=== PATIENT | female | born 1960 | race Caucasian/White ===

== ENCOUNTER 2020-05-15 17:30 | Inpatient (IN) | payer BC ==
[~2020-05-15] VITALS: Ht 167.6 cm; Wt 100.0 kg
--- NOTE | 2020-05-15 17:30 | NUR ---
PT TO ROOM VIA EMS STRETCHER FOR BEDSIDE TRIAGE
[2020-05-15 18:09] LABS: URINE BILIRUBIN - DIPSTICK SMALL (NEGATIVE); URINE BLOOD DIPSTICK LARGE (NEGATIVE); URINE COLOR YELLOW; URINE GLUCOSE - DIPSTICK NEGATIVE (NEGATIVE); URINE KETONE TRACE mg/dL (NEGATIVE); URINE LEUK ESTERASE MODERATE (NEGATIVE); URINE NITRITE - DIPSTICK NEGATIVE (Negative); URINE PH 7.5 (4.5-8.0); URINE PROTEIN - DIPSTICK >=300 mg/dL (NEG-TRACE); URINE SPECIFIC GRAVITY 1.025; URINE UROBILINOGEN - DIPSTICK 0.2 E.U./dL (0.2)
[2020-05-15 18:10] LABS: URINE AMORPH SEDIMENT MANY hpf (NONE-FEW); URINE BACTERIA MODERATE hpf; URINE SQUAMOUS EPITHELIAL CELL FEW EPI/hpf (0-FEW); URINE WBC TNTC WBC/hpf (0-5)
[2020-05-15 18:26] LABS: ALBUMIN 1.8 g/dL (3.2-5.0); ALKALINE PHOSPHATASE 218 u/l (38-126); BUN 69 mg/dL (7-17); BUN/CREATININE RATIO 36 (12-20 (CALC)); CARBON DIOXIDE 12 mmol/l (22-30); CHLORIDE 114 mmol/l (95-108); CREATININE 1.9 mg/dL (0.5-1.0); GFR 27 ML/MIN (>=60 (CALC)); GFR FOR AFR.AMER. 33 ML/MIN (>=60 (CALC)); SGOT/AST 37 u/l (14-36); SODIUM 138 mmol/l (137-146); TOTAL PROTEIN 5.2 g/dL (6.3-8.2)
[2020-05-15 18:28] LABS: ACT PARTIAL THROMBO TIME 36.5 SECONDS (20.0-32.5); INTERNATIONAL NORMALIZED RATIO 1.9 RATIO (0.7-1.3); PROTHROMBIN TIME 18.1 SECONDS (9.0-12.5)
[2020-05-15 18:30] LABS: ANION GAP 17 (6-22 (CALC)); IMMATURE GRANULOCYTES 0.9 % (0.0-5.0); MEAN CELL VOLUME 59.4 fL CALC (80.0-100.0); MEAN CORPUSCULAR HGB 15.9 pG CALC (26.0-32.0); MEAN CORPUSCULAR HGB CONC 26.7 g/dL CAL (32.0-36.0); NEUT# 12.74 thou/uL (2.00-7.15); POTASSIUM 5.2 mmol/l (3.5-5.1); RED BLOOD COUNT 2.71 mill/uL (4.20-5.60); RED CELL DISTRI WIDTH 24.2 % (11.5-15.5)
[2020-05-15 18:34] LABS: HEMATOCRIT 16.1 % (37.0-47.0); HEMOGLOBIN 4.3 g/dl (12.0-16.0)
--- NOTE | 2020-05-15 19:00 | NUR ---
PT RETURNED FROM CT VIA STRETCHER WITH NOE YOUSIF. PT IS UNRESPONSIVE. RESPONDS TO PAINFUL STIMULI. NO VERBAL RESPONSE. ANTIBIOTICS AND FLUIDS INFUSING. 2800 CC OF NS HAS NOW INFUSED. (1000CC BY EMS/1800 BY US) CM SR-ST. BP LOW....LEVOPHED BEING PREPARED.
--- NOTE | 2020-05-15 19:05 | NUR ---
DR SOLARES AND Renato SOLO, RN TO BEDSIDE TO DISCUSS CODE ISSUES WITH S.O. WHO IS APPRAENTLY HER PROXY. SON IS ALSO ON THE PHONE. PT MADE A DNR. WILL CONTINUE WITH MEDICATIONS/BLOOD/COMFORT MEASURES.
[2020-05-15 20:00] VITALS: BP 97/47
[2020-05-15 20:24] VITALS: BP 101/50
[2020-05-15 21:20] VITALS: BP 105/51
--- NOTE | 2020-05-15 21:30 | NUR ---
JEANNIE REESE NOTIFIED OF INCREASED LACTIC/BS 58 -D10 GIVEN/1 UNIT OF BLOOD GIVEN FOR HGB OF 4.3
[2020-05-15] MEDS ORDERED: BUMETANIDE1 MG PO (21:52)
[2020-05-15] MEDS ORDERED: SPIRONOLACTONE25 MG PO (21:53)
[2020-05-15] MEDS ORDERED: ACTIGALL300 MG PO (21:53)
[2020-05-15] MEDS ORDERED: GENERLAC10 GM/15 M PO (21:54)
[2020-05-15 22:13] VITALS: BP 99/50
[2020-05-15 22:42] VITALS: BP 92/46
--- NOTE | 2020-05-15 22:48 | NUR ---
2ND UNIT OF BLOOD INFUSING. BP IN 90'S. LEVOPHED INCREASED.
[2020-05-16] VITALS (46 sets, daily range): BP systolic 76–127; BP diastolic 36–60
--- NOTE | 2020-05-16 01:30 | NUR ---
PT RESTING. VS HOLDING. 2ND UNIT OF BLOOD COMPLETED.
[2020-05-16 02:23] LABS: MEAN CORPUSCULAR HGB 18.5 pG CALC (26.0-32.0); MEAN CORPUSCULAR HGB CONC 28.8 g/dL CAL (32.0-36.0); RED BLOOD COUNT 3.72 mill/uL (4.20-5.60); RED CELL DISTRI WIDTH 28.9 % (11.5-15.5)
[2020-05-16 02:26] LABS: HEMOGLOBIN 6.9 g/dl (12.0-16.0); MEAN CELL VOLUME 64.5 fL CALC (80.0-100.0)
--- NOTE | 2020-05-16 03:30 | NUR ---
PT TRANSFERRED TO HOSPITAL BED. LEAKING FOUL, THICK LINDSEY PURULENT DRAINAGE FROM MERY AREA. AREAS OF ESCORIATION AND SMALL ULCERATIONS TO ANTERIOR PUBIC AREA AND SACRAL AREA. QUIROZ CHANGED TO ONE WITH A METER FOR CLOSER MONITORING. AND TO MAKE SURE LIQUID IS NOT DRAINING FROM AROUND THE CATH. PT CLEANSED. WARM BLANKETS APPLIED. CONTINUES TO ONLY RESPOND TO PAINFUL STIMULI. NO VERBALIZATION/NO EYE CONTACT.
--- NOTE | 2020-05-16 06:15 | NUR ---
PT HOLDING STEADY. PT CHANGED FOR PURULENT DRAINAGE FROM MERY AREA....SATURATED ATTENDS. CLEANSED AND POSITIONED. S.O. AT BEDSIDE. MORNING LABS DRAWN BY PHLEB
[2020-05-16 06:36] LABS: HEMATOCRIT 24.7 % (37.0-47.0); IMMATURE GRANULOCYTES 1.3 % (0.0-5.0); MEAN CELL VOLUME 65.3 fL CALC (80.0-100.0); MEAN CORPUSCULAR HGB 18.3 pG CALC (26.0-32.0); MEAN CORPUSCULAR HGB CONC 27.9 g/dL CAL (32.0-36.0); NEUT# 17.85 thou/uL (2.00-7.15); RED BLOOD COUNT 3.78 mill/uL (4.20-5.60); RED CELL DISTRI WIDTH 28.5 % (11.5-15.5)
[2020-05-16 06:50] LABS: ALBUMIN 1.9 g/dL (3.2-5.0); TOTAL PROTEIN 5.7 g/dL (6.3-8.2)
[2020-05-16 06:52] LABS: HEMOGLOBIN 6.9 g/dl (12.0-16.0)
--- NOTE | 2020-05-16 07:00 | NUR ---
PT RESTING IN BED WITH EYES OPEN. PT IS UNRESPONSIVE AT THIS STIMULI AT THIS TIME. S/O AT BEDSIDE. ADMISSION ASSESSMENT COMPLETED AT THIS TIME. IV PATENT X3. TITRATIONS FOR LEVOPHED PER AUG.
--- NOTE | 2020-05-16 07:05 | NUR ---
REPORT TO PERLA
[2020-05-16 07:16] LABS: BILIRUBIN, TOTAL 4.9 mg/dL (0.0-1.4); POTASSIUM 5.6 mmol/l (3.5-5.1)
--- NOTE | 2020-05-16 07:30 | NUR ---
INCREASED O2 TO 4L NC AT THIS TIME FOR DECREAsed o2 sats
--- NOTE | 2020-05-16 08:00 | NUR ---
DR BARRIOS NOTIFIED OF CONSULT AT THIS TIME
--- NOTE | 2020-05-16 08:00 | NUR ---
DR LOPEZ AND JEANNIE AT BEDSIDE FOR EVAL AND TO DISCUSS PLAN OF CARE. NEW ORDERS RECEIVED
--- NOTE | 2020-05-16 08:25 | NUR ---
1 UNIT OF PRBCS INFUSING AT THIS TIME. DISCUSSED NEED FOR CENTRAL LINE WITH S/O AND GIVES CONSENT. WILL OBTAIN CONSENT. CALL LIGHT IN REACH. WILL CONTIUNUE TO MONITOR.
--- NOTE | 2020-05-16 08:50 | NUR ---
S/O CALLED THIS NURSE INTO ROOM. PT HAD BROWNISH TINGED FOAM COMING OUT OF NOSE. PT FACE CLEANSED. ELVEATED HOB. DR LOPEZ NOTIFIED. WILL CONTINUE TO MONITOR.
--- NOTE | 2020-05-16 09:14 | NUR ---
PT'S CHART REVIEWED AND SCREENED FOR PT SERVICES. DUE TO PT'S CONDITION PT IS NOT APPROPRIATE FOR SKILLED PT AT THIS TIME. IF CLINICAL STATUS IMPROVES PHYSICAL MEDICINE WILL REASSESS.
--- NOTE | 2020-05-16 09:30 | NUR ---
DR LOPEZ NOTIFIED OF DECLINE IN PT CONDITION.
--- NOTE | 2020-05-16 09:40 | NUR ---
Rancho BRIDGES APRN AT BEDSIDE TO DISUCSS PLAN OF CARE AND DECLINE WITH PT AND S/O.
--- NOTE | 2020-05-16 09:45 | NUR ---
PT PLACE A NRB AT 15L FOR DECREASED O2 SATS.
--- NOTE | 2020-05-16 10:45 | NUR ---
1 UNIT OF PRBC COMPLETED AT THIS TIME. LACTULOSE 30GM GIVEN RECTALLY PER MD ORDERS BY Fabio ROMERO RN. NO URINE OUTOUT THIS FAR ON OUR SHIFT.
--- NOTE | 2020-05-16 11:01 | NUR ---
REPORT CALLED TO DARREN LIU IN ICU
--- NOTE | 2020-05-16 11:11 | NUR ---
CONSENT FOR CENTRAL LINE PLACEMENT OBTAINED AT THIS TIME FROM S/O
--- NOTE | 2020-05-16 11:26 | NUR ---
S/O LEFT BEDSIDE AT THIS TIME. CODE PROVIDED SO HE CAN CALL FOR UPDATES ON PATIENT. S/O THANKFUL FOR CARE RECEIVED.
--- NOTE | 2020-05-16 11:35 | NUR ---
PT TRANSPORTED TO ICU VIA BED ON MONITOR. UPDATE PROVIDED TO DARREN LIU.
--- NOTE | 2020-05-16 11:38 | NUR ---
female pt received to ICU bed 2 via bed accompanied by Eboni Reed RN and Stone Rojas LPN; assessment completed at this time; pt unresponsive to verbal and painful stimuli; pupils reactive; no facial grimaces of pain noted; no n/v noted; resp unlabored; lungs coarse throughout/ more diminished to right carrera; skin color pale; NRB intact at 15L; no cough noted; hr reg; weak pulses; 4+ generalized edema noted; sr/st on monitor; abd soft/ distended with bs hypoactive; large hernia noted to lower abd with redness and ashened appearance; no stool noted per advertising copy writer; ma to gravity draining cloudy bloody urine/ clots noted; #18 to rac patent with levophed gtt at 32 mcg/min; #20 rfa/ ems site flushed and patent; #20 to lh flushed and patent; bruising noted to left lat torse and left upper inner thigh; skin abrasions noted to left lat ankle/foot; perineum extremly red with small open areas; coccyx/ buttocks red with small open areas; unable to measure/see photo on chart; thin creamy/ bloody/ purulent copious discharge appears to be excreted from vaginal area; purulent brownish discharge from rectal area; discharge noted with VERY FOUL ODOR; pt appears unkempt; repositioned; will continue to monitor closely
--- NOTE | 2020-05-16 12:11 | NUR ---
D Kayla LOVE called in regards to pt status; informed sbp 90s on 32 mcg/min levophed; unresponsive; will continue to monitor
--- NOTE | 2020-05-16 12:14 | NUR ---
PT ON NRB WITH SPO2 IN MID 80'S.
--- NOTE | 2020-05-16 12:31 | NUR ---
admin has approved visitation
--- NOTE | 2020-05-16 12:34 | NUR ---
call placed to Bill s/o; no answer; message left to return call
--- NOTE | 2020-05-16 12:44 | NUR ---
received call from Holaira s/o; updated provided; spouse wishes to hold off on morphine for discomfort; informed of visitation approval; will continue to monitor
--- NOTE | 2020-05-16 13:06 | NUR ---
central line placement canceled per Dr Alex; Dr Dotson notified per Fabio Dietrich APRN
--- NOTE | 2020-05-16 13:15 | NUR ---
call placed to Bill sign other at this time; called twice; no answer; message left to return call
--- NOTE | 2020-05-16 13:21 | NUR ---
received call from Roberto mendoza other; senior mortgage underwriter request for s/o to come to hospital explained declined in resp rate and hr dropping to 40-50s; s/o in [place] and will be here in 20 min; s/o made aware pt will more than likely have passed before his arrival; Roberto appreciative of care and states "I knew this would happen";
--- NOTE | 2020-05-16 13:30 | NUR ---
cardiopulmonary arrest; apical pulses absent verified as per protocol; time of [id number]
--- NOTE | 2020-05-16 13:42 | NUR ---
1342 received called from [employer] in regards to pt picker feeder 1343; Nadine Renee [facility] called per clinical writer to cancel picker feeder
--- NOTE | 2020-05-16 13:50 | NUR ---
sign other Adan Contreras present in waiting room; pt has been cleaned up; s/o declined to enter patiet room; Adan admits to having pt belongings already; Adan has notified son Mike; crematory pre-arrangements has been made; s/o and son unsure of company name; son Mike will try and obtain information later tonight per Adan; this engineering writer explained to Adan that there is no morge here; body to released to Nadine Byrd; Adan garcia
--- NOTE | 2020-05-16 13:52 | NUR ---
[facility] per underwriter solicitation director; information provided; ref. number [id number]; [facility];
--- NOTE | 2020-05-16 14:43 | NUR ---
Nancy Euceda called per gag writer in regards to NOT receiving a return call from [facility]
--- NOTE | 2020-05-16 15:03 | NUR ---
call received from [facility] Hugo; pt has been released
--- NOTE | 2020-05-16 15:07 | NUR ---
[facility]an [facility] called per typewriter operator automatic; spoke with Olinda; typewriter operator automatic informed Olinda of cremation arrangements made already per family however family unsure of society/company; Olinda informed of no Morg[facility] at [facility]; Olinda informs this typewriter operator automatic there will be removal fee; Olinda inquiring if hospital or family will cover fee; Nursing Sup Khan notified to call Nadine Duran
--- NOTE | 2020-05-16 15:31 | NUR ---
call placed to Adan in regards to releasing body to [facility]; Adan informed that the [employer] will NOT have access to the body until Tuesday as per Olinda if body is released to [facility]; Adan unsure of [employer], states he will look through the files tomorrow; Adan agree with releasing body to [facility]
--- NOTE | 2020-05-16 15:38 | NUR ---
ETA 10-15 minutes per C Khan, nursing sup
--- NOTE | 2020-05-16 15:42 | NUR ---
1542: received called from [employer] in regards to pt black pickler 1543: Nadine Duran [facility] called per auto service writer to cancel black pickler
--- NOTE | 2020-05-16 15:45 | NUR ---
Geri from [employer] called this movie writer; Geri informed this movie writer of cremation arrangements; information provided; awaiting ETA; Geri informed NO gina;
--- NOTE | 2020-05-16 16:30 | NUR ---
Genesis Jarquin from [facility] on unit to received
--- NOTE | 2020-05-16 16:46 | NUR ---
body released; no belongings
== END 2020-05-16 13:30 | disposition expired | DRG 871 ==
LOC: EDBD 17:30 → ED 17:30 → ED-I 19:17 → ED 19:22 → ED-I 19:23 → ICU 05-16 10:24
PROVIDERS: Nurse Practitioner Family; Student in an Organized Health Care Education/Training Program; ADMIT Internal Medicine; ATTEND Internal Medicine
PROC: 30233N0 Transfusion of Autologous Red Blood Cells into Peripheral Vein, Percutaneous Approach (ICD-10-PCS; principal; 2020-05-15)
PROC: 30233N1 Transfusion of Nonautologous Red Blood Cells into Peripheral Vein, Percutaneous Approach (ICD-10-PCS; 2020-05-15)
PROC: 0T9B70Z Drainage of Bladder with Drainage Device, Via Natural or Artificial Opening (ICD-10-PCS; 2020-05-15)
PROC: 30233N1 Transfusion of Nonautologous Red Blood Cells into Peripheral Vein, Percutaneous Approach (ICD-10-PCS; 2020-05-16)
DX: A41.9 Sepsis, unspecified organism (principal); R65.21 Severe sepsis with septic shock; K63.1 Perforation of intestine (nontraumatic); N39.0 Urinary tract infection, site not specified; D62 Acute posthemorrhagic anemia; D68.4 Acquired coagulation factor deficiency; K72.90 Hepatic failure, unspecified without coma; D73.9 Disease of spleen, unspecified; L89.152 Pressure ulcer of sacral region, stage 2; L89.322 Pressure ulcer of left buttock, stage 2; E11.22 Type 2 diabetes mellitus with diabetic chronic kidney disease; I12.9 Hypertensive chronic kidney disease with stage 1 through stage 4 chronic kidney disease, or unspecified chronic kidney disease; N18.9 Chronic kidney disease, unspecified; R91.8 Other nonspecific abnormal finding of lung field; R60.1 Generalized edema; Z66 Do not resuscitate; Z20.828 Contact with and (suspected) exposure to other viral communicable diseases
CPT/HCPCS: P9016